=== PATIENT | male | born 1975 | race Caucasian/White ===

== ENCOUNTER → 2024-04-07 10:21 | Outpatient (BNVA) | payer MEDICAID, SELFPAY | DX: Z13.6 Encounter for screening for cardiovascular disorders (principal) | CPT/HCPCS: 80053; 80061; 85025 ==

== ENCOUNTER → 2024-05-14 15:18 | Outpatient (BNVA) | payer MEDICAID, SELFPAY | PROVIDERS: Visit Provider Emergency Medicine | DX: R50.9 Fever, unspecified (principal) | CPT/HCPCS: 87400; 87426 ==

== ENCOUNTER → 2024-08-07 09:57 | Outpatient (BNVA) | payer MEDICAID, SELFPAY | DX: I10 Essential (primary) hypertension (principal); G56.03 Carpal tunnel syndrome, bilateral upper limbs | CPT/HCPCS: 73110 ==

== ENCOUNTER → 2024-09-04 08:28 | Outpatient (BNVA) | payer MEDICAID, SELFPAY | PROVIDERS: Visit Provider Nurse Practitioner | DX: G56.03 Carpal tunnel syndrome, bilateral upper limbs (principal); R20.2 Paresthesia of skin | CPT/HCPCS: 73110 ==

== ENCOUNTER → 2024-09-09 16:49 | Outpatient (BNVA) | payer MEDICAID, SELFPAY | PROVIDERS: Visit Provider Family Medicine | DX: R50.9 Fever, unspecified (principal) | CPT/HCPCS: 87400; 87426 ==

== ENCOUNTER 2024-09-11 15:19 | Emergency (ER) | payer MEDICAID, SELFPAY ==
--- NOTE | 2024-09-11 15:24 | XRR_ITS ---
PROCEDURE INFORMATION: Exam: XR Chest Exam date and time: 09/11/2024 3:39 PM Age: 49 years old Clinical indication: Shortness of breath; Patient HX: SOB, chest pain and coughing up yellow/green thick phlegm x 4-5 days. Very nauseous. PT states that it feels like fire when inhaling TECHNIQUE: Imaging protocol: Radiologic exam of the chest. Views: 1 view. COMPARISON: No relevant prior studies available. FINDINGS: Lungs: Unremarkable. No consolidation. Pleural spaces: Unremarkable. No pleural effusion. No pneumothorax. Heart/Mediastinum: Unremarkable. No cardiomegaly. Bones/joints: Unremarkable. XR/XR chest 1V portable [id number] IMPRESSION: No acute findings.
[2024-09-11 15:28] VITALS: BP 141/87; PULSE 95; RESP 18; TEMP 38.3; O2SAT 95
--- NOTE | 2024-09-11 15:31 | ECG_ITS ---
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 Measurements Intervals Campus Rate: 97 P: 50 MO: 174 QRS: 5 QRSD: 104 T: 86 QT: 330 QTc: 421 Interpretive Statements SINUS RHYTHM INCOMPLETE RIGHT BUNDLE BRANCH BLOCK [90+ ms QRS DURATION, TERMINAL R IN V1/V2, 40+ ms S IN I/aVL/V4/V5/V6] ST DEVIATION AND MODERATE T-WAVE ABNORMALITY, CONSIDER ANTEROLATERAL ISCHEMIA [-0.1+ mV T-WAVE IN V3-V6] No previous ECG available for comparison Electronically Signed On 09-13-2024 00:03:04 FISH FILLETER by Jocelin Dukes M.D. [email or web address]
[2024-09-11 17:09] VITALS: BP 128/82; PULSE 108; TEMP 39.2; O2SAT 93
--- NOTE | 2024-09-11 17:41 | ED_ITS ---
HPI - SOB/Dyspnea 2 General: Chief Complaint: Shortness of Breath/Dyspnea Stated Complaint: sob, overall sick Time Seen by Provider: 09/11/24 17:25 Source: patient Mode of arrival: ambulatory Limitations: no limitations History of Present Illness: HPI Narrative: Patient is a 49-year-old male with past medical history of coronary artery disease who presents the emergency department complaining of shortness of breath for the past few days, since . Patient initially seen in urgent care, was prescribed amoxicillin and states he has been unable to pick this up from pharmacy due to them being out of amoxicillin. Since he has developed increasing weakness, fevers that he has been taking ibuprofen for. He does have a temperature here during triage. He is also having nausea vomiting and diarrhea, a mildly productive cough, headache, chills, and bodyaches. States he recently was sick with norovirus, has had multiple family members sick recently with flu and COVID. He is not reporting any neck pain or stiffness, no reports of altered mental status or confusion, no other concerning symptoms reported at this time. He denies a history of COPD or asthma does not use oxygen at home. MD elicited complaint: shortness of breath Onset (ago): day(s) Timing: progressively worsening Severity: moderate Associated symptoms: Reports abdominal pain, fever(s), nausea and vomiting; Deny chest pain, hemoptysis or palpitations Related Data Home Medications Medication Instructions Recorded Confirmed aspirin 81 mg tablet,delayed 81 mg PO DAILY 04/07/24 09/09/24 release (Debo Low Dose Aspirin) Previous Rx's Medication Instructions Recorded tramadol 50 mg tablet 50 mg PO Q6H PRN pain 5 days #20 05/14/24 tabs gabapentin 300 mg capsule 300 mg PO TID #90 caps 07/18/24 methocarbamol 750 mg tablet 750 mg PO Q8H #30 tabs 07/18/24 atorvastatin 10 mg tablet 10 mg PO DAILY #30 tabs 08/07/24 colchicine 0.6 mg tablet 0.6 mg PO DAILY #30 tabs 08/07/24 metoprolol tartrate 25 mg tablet 25 mg PO BID #60 tabs 08/07/24 celecoxib 100 mg capsule (Celebrex) 100 mg PO BID #180 caps 09/04/24 diclofenac sodium 1 % topical gel 2 g topical QID #100 grams 09/04/24 amoxicillin 500 mg-potassium 1 tab PO TID #30 tabs 09/09/24 clavulanate 125 mg tablet (Augmentin) meloxicam 15 mg tablet 15 mg PO DAILY #10 tabs 09/09/24 promethazine-DM 6.25 mg-15 mg/5 mL 10 ml PO Q6H #118 mL 09/09/24 oral syrup prednisone 20 mg tablet 60 mg (3 x 20 mg) PO ONCE 5 days 09/11/24 #15 tabs Allergies Allergy/AdvReac Type Severity Reaction Status Date / Time No Known Allergies Allergy Verified 09/11/24 15:39 Review of Systems 2 General: Reports: 10 or more systems reviewed and unremarkable except in HPI and below Const: Reports: fever(s), chills, body aches and fatigue ENMT: Denies: throat pain, nasal discharge or nasal congestion Card: Denies: chest pain, palpitations or edema Resp: Reports: dyspnea and productive cough; Denies: hemoptysis GI: Reports: abdominal pain, nausea, vomiting and diarrhea; Denies: hematemesis, constipation or hematochezia : Denies: dysuria or hematuria Musc: Denies: neck pain or joint pain Skin/Breast: Denies: rash Neuro: Reports: headache(s); Denies: confusion or behavioral changes PFSH ED 2 PFSH: Medical History Right wrist pain Carpal tunnel syndrome on both sides Coronary artery disease Hypertension Sciatic nerve pain Herniated disc Screening for cardiovascular condition Encounter to establish care Gout Surgical History H/O rotator cuff surgery Family History Mother Stroke Diabetes mellitus type 1 Heart attack Father Heart attack Social History Smoking and tobacco/nicotine status: never used tobacco/nicotine Alcohol intake: current Substance/Drug Use: never Adopted: No service: No Current occupational exposures/hazards: Yes Physical Exam 2 Const: COMMON NORMALS: no acute distress, patient oriented x3 and no limitations GENERAL APPEARANCE: cooperative, comfortable and well developed ORIENTATION/CONSCIOUSNESS: Yes awake, Yes oriented to person, Yes oriented to place and Yes oriented to time HENMT: COMMON NORMALS: normocephalic, atraumatic, hearing grossly normal bilaterally, Normal nasal mucous membranes and turbinates present, moist oral mucous membranes and oropharynx normal HEAD & SCALP: normocephalic and atraumatic FACE & SINUS: normal facial exam NOSE: Normal nasal mucous membranes and turbinates present Eye: COMMON NORMALS: Equal, round and reactive pupils present, EOMs intact bilaterally and conjunctivae normal CONJUNCTIVA: Yes conjunctivae normal P UPIL: Yes Equal, round and reactive pupils present Neck/C-Spine: COMMON NORMALS: full ROM, supple and no JVD OTHER: No cervical spine tenderness, negative Kernig's and negative Brudzinski Resp: COMMON NORMALS: normal respiratory effort, No retractions, No use of accessory muscles and clear to auscultation bilaterally EFFORT & INSPECTION: Yes Actively coughing hacking AUSCULTATION: clear to auscultation bilaterally Cardio: COMMON NORMALS: no JVD, regular rate, regular rhythm, No clicks present (Cardio), No murmurs present (Cardio) and No rub (Cardio) RATE: r egular rate RHYTHM: regular rhythm GI: COMMON NORMALS: Normal to inspection, nondistended, normoactive bowel sounds present and Soft to palpation AUSCULTATION: Yes normoactive bowel sounds PALPATION: Yes Soft to palpation RECTAL EXAM: Yes deferred O THER: Diffuse abdominal tenderness Extremity: COMMON NORMALS: normal to inspection, full ROM, capillary refill normal and no pedal edema Neuro: COMMON NORMALS: patient oriented x3, moves all extremities, no focal motor deficits and no sensory deficits noted SENSORIUM/ORIENTATION: Yes oriented to person, Yes oriented to place and Yes oriented to time Psych: COMMON NORMALS: mental status grossly normal and Normal thought process present THOUGHT PROCESS: Normal thought process present Skin: COMMON NORMALS: no rashes or lesions noted GENERAL SKIN EXAM: no rashes or lesions noted Course 2 Vital Signs: Vital signs: Vital Signs Temperature 100.1 F H 09/11/24 19:20 Pulse Rate 90 09/11/24 20:58 Respiratory Rate 18 09/11/24 15:28 Blood Pressure 128/88 09/11/24 20:58 Pulse Oximetry 91 09/11/24 20:58 Oxygen Delivery Me thod Room Air 09/11/24 15:28 MDM - SOB/Dyspnea Medical Decision Making Patient presented with 4 days of upper respiratory symptoms. Did arrive with a temperature, brought down Tylenol here. Breathing comfortably on room air, vitals have been stable. Tested positive for flu A. Labs and urinalysis unremarkable, CRP elevated likely secondary to viral infection. Did not have any concerns for meningitis and no signs of pneumonia on chest x-ray. Lactic was unremarkable. I do believe his symptoms are related to fluid infection, he is out of the window for Tamiflu. Discussed with him conservative therapies as he is already prescribed Promethazine DM for his cough, will add steroids for breathing. Encouraged to continue alternating ibuprofen and Tylenol and to follow-up with primary care later this week. For any sick contact exposures, encouraged him to seek evaluation with onset of symptoms as they may qualify for Tamiflu. Return precautions were given such that if he has any trouble breathing, uncontrollable fevers, or other concerning symptoms to return. He agrees with this plan at this time. Lab Data 09/11/24 17:56 09/11/24 17:56 Labs/Radiology: Laboratory Results WBC 8.51 10^3/uL (3.29-11.43) 09/11/24 17:56 RBC 5.66 10^6/uL (3.85-5.65) H 09/11/24 17:56 Hgb 16.20 g/dL (11.27-16.99) 09/11/24 17:56 Hct 46.9 % (37-53) 09/11/24 17:56 MCV 82.9 fl (82-101) 09/11/24 17:56 MCH 28.6 pg (27-33) 09/11/24 17:56 MCHC 34.5 g/dL (30-55) 09/11/24 17:56 RDW 12.4 % (12.1-15.1) 09/11/24 17:56 Plt Count 178 10^3/cmm (157-399) 09/11/24 17:56 MPV 10.9 fL (7.4-10.4) H 09/11/24 17:56 Neut % (Auto) 72.6 % 09/11/24 17:56 Lymph % (Auto) 12.6 % 09/11/24 17:56 [place] % (Auto) 14.0 % 09/11/24 17:56 Eos % (Auto) 0.0 % 09/11/24 17:56 Baso % (Auto) 0.4 % 09/11/24 17:56 Neut # (Auto) 6.19 10^3/uL (1.8-7.7) 09/11/24 17:56 Lymph # (Auto) 1.1 10^3/uL (0.8-4.8) 09/11/24 17:56 [place] # (Auto) 1.2 10^3/uL (0.2-0.9) H 09/11/24 17:56 Eos # (Auto) 0.0 10^3/uL (0.0-0.8) 09/11/24 17:56 Baso # (Auto) 0.0 10^3/uL (0.0-0.1) 09/11/24 17:56 Nucleated RBC % (auto) 0 % 09/11/24 17:56 Nucleated RBCs # 0.0 /100WBC 09/11/24 17:56 Sodium 134 mmol/L (136-145) L 09/11/24 17:56 Potassium 3.6 mmol/L (3.5-5.1) 09/11/24 17:56 Chloride 94 mmol/L (98-107) L 09/11/24 17:56 Carbon Dioxide 26 mmol/L (22-29) 09/11/24 17:56 Anion Gap 17.6 (5-19) 09/11/24 17:56 BUN 14 mg/dL (6-20) 09/11/24 17:56 Creatinine 1.1 mg/dL (0.7-1.2) 09/11/24 17:56 GFR Calculation 71.1 mL/min (90-130) L 09/11/24 17:56 Glucose 113 mg/dL (65-115) 09/11/24 17:56 Calculated Osmolality 279 mOsm/kg (285-295) L 09/11/24 17:56 Lactic Acid 1.8 mmol/L (0.5-2.2) 09/11/24 17:56 Calcium 9.5 mg/dL (8.5-10.5) 09/11/24 17:56 Total Bilirubin 0.7 mg/dL (0.15-1.2) 09/11/24 17:56 AST 30 U/L (0-40) 09/11/24 17:56 ALT 37 U/L (0-41) 09/11/24 17:56 Alkaline Phosphatase 96 U/L (40-130) 09/11/24 17:56 C-Reactive Protein 76.3 mg/L (0.0-4.9) H 09/11/24 17:56 Total Protein 8.0 g/dL (6.6-8.7) 09/11/24 17:56 Albumin 4.3 g/dL (3.5-5.2) 09/11/24 17:56 Globulin 3.7 g/dL (1.3-4.6) 09/11/24 17:56 Urine Color Yellow (Yellow) 09/11/24 18:37 Urine Appearance Cloudy (CLEAR) A 09/11/24 18:37 Urine pH 5.5 (5-7) 09/11/24 18:37 Ur Specific [place] 1.028 (1.005-1.030) 09/11/24 18:37 Urine Protein 2+ (Negative) A 09/11/24 18:37 Urine Glucose (UA) Negative (Normal) 09/11/24 18:37 Urine Ketones Trace (Negative) 09/11/24 18:37 Urine Blood Negative (Negative) 09/11/24 18:37 Urine Nitrate Negative (Negative) 09/11/24 18:37 Urine Bilirubin Negative (Negative) 09/11/24 18:37 Urine Urobilinogen 1.0 mg/dL (Negative) 09/11/24 18:37 Ur Leukocyte Esterase Negative (Negative) 09/11/24 18:37 Urine RBC 0-2 /hpf (0-2) 09/11/24 18:37 Urine WBC 0-5 /hpf (0-5) 09/11/24 18:37 Ur Squamous Epith Cells 0-5 /hpf (0-5) 09/11/24 18:37 Amorphous Sediment Not Reportable 09/11/24 18:37 Urine Bacteria None seen /hpf (NONE) 09/11/24 18:37 Hyaline Casts 9.91 /lpf 09/11/24 18:37 Coronavirus (PCR) Negative (Negative) 09/11/24 17:30 Influenza A (PCR) Positive (Negative) 09/11/24 17:30 Influenza Type A Ag Cancelled 09/11/24 17:30 Influenza Type B Ag Cancelled 09/11/24 17:30 Influenza Type B (PCR) Negative (Negative) 09/11/24 17:30 RSV (PCR) Negative (Negative) 09/11/24 17:30 SARS-CoV-2 Ag (Rapid) Cancelled 09/11/24 17:30 XR interpretation done by ED provider, pending radiology final review ED provider radiology interpretation(s): Chest x-ray did not demonstrate any focal consolidation. Discharge Plan Discharge Patient Disposition: Home Clinical Impression: Influenza A Condition: Stable Prescriptions: New prednisone 20 mg tablet 60 mg PO ONCE 5 Days Qty: 15 0RF No Action aspirin [Debo Low Dose Aspirin] 81 mg tablet,delayed release (DR/EC) 81 mg PO DAILY tramadol 50 mg tablet 50 mg PO Q6H PRN (Reason: pain) 5 Days Qty: 20 0RF atorvastatin 10 mg tablet 10 mg PO DAILY Qty: 30 2RF colchicine 0.6 mg tablet 0.6 mg PO DAILY Qty: 30 2RF metoprolol tartrate 25 mg tablet 25 mg PO BID Qty: 60 2RF celecoxib [Celebrex] 100 mg capsule 100 mg PO BID Qty: 180 1RF diclofenac sodium 1 % gel 2 g topical QID Qty: 100 1RF Rx Instructions: apply to single elbow, wrist or hand; for hand includes palm/fingers/back of hand promethazine-DM 6.25-15 mg/5 mL syrup 10 ml PO Q6H Qty: 118 1RF amoxicillin-pot clavulanate [Augmentin] 500-125 mg tablet 1 tab PO TID Qty: 30 0RF meloxicam 15 mg tablet 15 mg PO DAILY Qty: 10 0RF gabapentin 300 mg capsule 300 mg PO TID Qty: 90 2RF methocarbamol 750 mg tablet 750 mg PO Q8H Qty: 30 1RF Discharge Orders: Discharge ED (Routine); Ordered 09/11/24 Ordered By: Meek Reese Referrals: Enriqueta Baldwin NP [Primary Care Provider] - Patient Instructions: Influenza (ED) Activity Restrictions/Additional Instructions: Prednisone as prescribed. Continue cough medicine at home. Please follow-up with primary care for routine reevaluation. Drink plenty of fluids. Tylenol/ibuprofen for body aches and fevers. Return with any worsening breathing or other concerning symptoms. Coding Level of Care Code ED Capsule Inspector for Soyg Myke
[2024-09-11] MEDS: ondansetron 2 mg/ML SDV 2 mL 8 MG IVP (17:59)
[2024-09-11] MEDS: sodium chloride 0.9% 1,000 ML 999 ML IV (17:59)
[2024-09-11] MEDS: acetaminophen 500 mg Tablet 1000 MG PO (18:00)
[2024-09-11 18:31] LABS: Covid PCR NEGATIVE (Negative); Influenza A POSITIVE (Negative); Influenza B NEGATIVE (Negative); Respiratory Syncytial Virus Ce NEGATIVE (Negative)
[2024-09-11] MEDS: benzonatate 100 mg Capsule 200 MG PO (18:34)
[2024-09-11 18:45] LABS: Bilirubin Urine Negative (Negative); Blood Urine Negative (Negative); Glucose Urine UA Negative (Normal); Ketones Urine Trace (Negative); Leukocyte Esterase Urine Negative (Negative); Nitrate Urine Negative (Negative); Protein Urine 2+ (Negative); Specific Gravity, Urine 1.028 (1.005-1.030); Urine Appearance Cloudy (CLEAR); Urine Color Yellow (Yellow); pH Urine 5.5 (5-7)
[2024-09-11 18:51] LABS: Basophils % 0.4 %; Hematocrit 46.9 % (37-53); Lymphocytes # 1.1 10^3/uL (0.8-4.8); Lymphocytes % 12.6 %; Mean Corpuscular HGB Conc 34.5 g/dL (30-55); Mean Corpuscular Hemoglobin 28.6 pg (27-33); Mean Corpuscular Volume 82.9 fl (82-101); Mean Platelet Volume 10.9 fL (7.4-10.4); Monocytes # 1.2 10^3/uL (0.2-0.9); Neutrophils # 6.19 10^3/uL (1.8-7.7); Neutrophils % 72.6 %; Nucleated Red Blood Cells % 0 %; Platelet Count 178 10^3/cmm (157-399); Red Blood Count 5.66 10^6/uL (3.85-5.65); Red Cell Distribution Width 12.4 % (12.1-15.1); White Blood Count 8.51 10^3/uL (3.29-11.43)
[2024-09-11 18:53] LABS: Add Urine Microscopic? YES; Bacteria Urine None Seen /hpf; Hyaline Casts Urine 9.91 /lpf; RBC Urine 0-2 /hpf (0-2); Squamous Epithelial Cell Urine 0-5 /hpf (0-5); WBC Urine 0-5 /hpf (0-5)
[2024-09-11 19:10] LABS: Alanine Aminotransferase 37 U/L (0-41); Albumin Level 4.3 g/dL (3.5-5.2); Alkaline Phosphatase 96 U/L (40-130); Anion Gap 17.6 (5-19); Aspartate Amino Transferase 30 U/L (0-40); Blood Urea Nitrogen 14 mg/dL (6-20); C Reactive Protein 76.3 mg/L (0.0-4.9); Calcium 9.5 mg/dL (8.5-10.5); Carbon Dioxide 26 mmol/L (22-29); Chloride 94 mmol/L (98-107); Creatinine Clr Calc Pharmacy 95.7279; Globulin 3.7 g/dL (1.3-4.6); Glomerular Filtration Rate 71.1 mL/min (90-130); Glucose 113 mg/dL (65-115); Osmolality Calculated 279 mOsm/kg (285-295); Potassium 3.6 mmol/L (3.5-5.1); Sodium 134 mmol/L (136-145); Total Bilirubin 0.7 mg/dL (0.15-1.2)
[2024-09-11 19:11] LABS: Lactic Sepsis W/Reflex 1.8 mmol/L (0.5-2.2)
[2024-09-11 19:20] VITALS: TEMP 37.8
[2024-09-11] MEDS: ketorolac 30 mg/mL INJ IVP (20:17)
[2024-09-11 20:58] VITALS: BP 128/88; PULSE 90; O2SAT 91
== END 2024-09-11 20:59 | disposition home or self-care (01) ==
PROVIDERS: Emergency Medicine; Emergency Provider Physician Assistant
DX: J10.1 Influenza due to other identified influenza virus with other respiratory manifestations (principal); Z79.82 Long term (current) use of aspirin; I25.10 Atherosclerotic heart disease of native coronary artery without angina pectoris; I10 Essential (primary) hypertension
CPT/HCPCS: 71045; 80053; 81001; 83605; 85025; 86140; 87637; 93005; 96361; 96374; 96375; 99285; J1885; J2405; J7030

== ENCOUNTER → 2024-09-25 11:38 | Outpatient (BNVA) | payer MEDICAID, SELFPAY | PROVIDERS: Visit Provider Nurse Practitioner | DX: G56.03 Carpal tunnel syndrome, bilateral upper limbs (principal) | CPT/HCPCS: 36415; 80053; 83036; 85025 ==

== ENCOUNTER → 2024-10-13 18:27 | Outpatient (BNVA) | payer MEDICAID, SELFPAY | PROVIDERS: Visit Provider Nurse Practitioner Family | DX: R05.9 Cough, unspecified (principal); R93.7 Abnormal findings on diagnostic imaging of other parts of musculoskeletal system | CPT/HCPCS: 71046 ==

== ENCOUNTER → 2024-12-18 17:02 | Outpatient (BNVA) | payer MEDICAID, SELFPAY | PROVIDERS: Visit Provider Nurse Practitioner | DX: G56.03 Carpal tunnel syndrome, bilateral upper limbs (principal) | CPT/HCPCS: 36415; 80053; 81001; 85025 ==

== ENCOUNTER → 2024-12-22 08:46 | Outpatient (BNVA) | payer MEDICAID, SELFPAY | PROVIDERS: Visit Provider Family Medicine | DX: Z01.818 Encounter for other preprocedural examination (principal); R00.1 Bradycardia, unspecified; I45.10 Unspecified right bundle-branch block | CPT/HCPCS: 93005 ==

== ENCOUNTER 2024-12-28 07:56 | Day surgery (SDC) | payer MEDICAID, SELFPAY ==
[2024-12-28] VITALS (11 sets, daily range): BP systolic 112–135; BP diastolic 64–97; PULSE 66–87; RESP 14–19; TEMP 36.1–36.5; O2SAT 93–98; BMI 35.6
[2024-12-28] MEDS: sodium chloride 0.9% 1,000 ML 30 ML IV (08:39)
[2024-12-28] MEDS: acetaminophen 1,000 MG/100 ML PIGGYBACK 400 MG IV (08:39)
[2024-12-28] MEDS: CELEcoxib 200 mg Capsule 400 MG PO (08:40)
[2024-12-28] MEDS: gabapentin 300 mg Capsule PO (08:40)
--- NOTE | 2024-12-28 09:58 | P.HPUD_ITS ---
Surgery/Procedure H&P Update DATE OF PROCEDURE: December 28, 2024 DATE H&P PERFORMED: 12/22/24 H&P UPDATE INFORMATION: I have reviewed H&P completed within last 30 days, I have examined patient prior to procedure, No changes to prior documentation, H&P is in [facility] EMR on date indicated and Risks and benefits of the procedure reviewed PLANNED PROCEDURE: Operation Date: 12/28/24 09:40 Proposed Procedures p RIGHT Carpal Tunnel Release(Right) - Daisy Grover MD Related Problem List Diagnoses (1) Carpal tunnel syndrome on right:
--- NOTE | 2024-12-28 10:01 | ANES.PREANE2 ---
Pre-Anesthetic Assessment Height/Weight: Height 1.73 m Weight 106.141 kg Temp Pulse Resp BP Pulse Ox O2 Del Method 97.6 F 66 18 127/83 98 Room Air 12/28/24 08:17 12/28/24 08:17 12/28/24 08:17 12/28/24 08:17 12/28/24 08:17 12/28/24 08:26 Operation Date: 12/28/24 09:40 Proposed Procedures p RIGHT Carpal Tunnel Release(Right) - Daisy Grover MD Familial anesthetic complications: None Was Beta Alvin taken within 24 hours: N/A Was Clonidine taken within 24 hours: N/A Last intake: Intake Last Liquid Date 11/28/24 Last Liquid Time 23:00 Last Solid Date 12/27/24 Last Solid Time 21:00 Social No alcohol and No tobacco Exam alert, oriented x 3, clear to auscultation bilaterally and regular rate & rhythm Airway Mallampati: Class II Dentition: full Pulmonary Sleep Apnea CV/HEM Coronary Artery Disease and Hypertension Denies: OLIVEIRA, CP, or syncope Metabolic Morbid Obesity Anesthetic Plan ASA status: 3 Anesthesia: General Risk of > 500 ml blood loss (7ml/kg in children): No Medications/Allergies Home Medications ?Medication ?Instructions ?Recorded ?Confirmed ?Last Taken ?Type aspirin 81 mg tablet,delayed 81 mg PO DAILY 04/07/24 12/27/24 12/18/24 History release (Debo Low Dose Aspirin) tramadol 50 mg tablet 50 mg PO Q6H PRN pain 5 days #20 05/14/24 12/27/24 12/18/24 Rx tabs methocarbamol 750 mg tablet 750 mg PO Q8H #30 tabs 07/18/24 12/27/24 12/18/24 Rx atorvastatin 10 mg tablet 10 mg PO DAILY #30 tabs 08/07/24 12/27/24 12/18/24 Rx colchicine 0.6 mg tablet 0.6 mg PO DAILY #30 tabs 08/07/24 12/27/24 12/18/24 Rx metoprolol tartrate 25 mg tablet 25 mg PO BID #60 tabs 08/07/24 12/27/24 12/28/24 Rx albuterol sulfate 90 mcg/actuation 2 puff inhalation Q6H PRN 09/19/24 12/27/24 Unknown Rx aerosol inhaler (Ventolin HFA) shortness of breath or wheezing #8.5 grams fluticasone propionate 44 2 puff inhalation BID #10.6 grams 10/14/24 12/27/24 12/18/24 Rx mcg/actuation HFA aerosol inhaler diclofenac sodium 1 % topical gel 2 g topical QID #100 grams 12/13/24 12/27/24 12/18/24 Rx (Voltaren Arthritis Pain) ibuprofen 800 mg tablet (IBU) 800 mg PO TID PRN pain #30 tabs 12/13/24 12/27/24 12/18/24 Rx chlorzoxazone 500 mg tablet 250 mg (1/2 x 500 mg) PO TID #21 12/18/24 12/27/24 12/18/24 Rx tabs tennis elbow strap #1 ea 12/18/24 12/22/24 Unknown Rx Allergies Allergy/AdvReac Type Severity Reaction Status Date / Time No Known Allergies Allergy Verified 12/22/24 09:10 Current Medications Generic Name Dose Route Start Last Admin Trade Name Freq PRN Reason Stop Dose Admin Sodium Chloride 1,000 mls @ 30 mls/hr 12/28/24 08:15 12/28/24 08:39 Sodium Chloride 0.9% IV 12/29/24 08:14 30 mls/hr .Q24H RIVER Administration PFSH Anesthesia Medical History (Updated 12/28/24 @ 09:59 by Daisy Grover MD) Lateral epicondylitis of right elbow Right wrist pain Carpal tunnel syndrome on both sides Coronary artery disease Hypertension Sciatic nerve pain Herniated disc Screening for cardiovascular condition Encounter to establish care Gout Surgical History H/O rotator cuff surgery Family History Mother Stroke Diabetes mellitus type 1 Heart attack Father Heart attack Social History Smoking and tobacco/nicotine status: never used tobacco/nicotine Alcohol intake: current Substance/Drug Use: never Adopted: No service: No Current occupational exposures/hazards: Yes
[2024-12-28] MEDS: ceFAZolin 2,000 mg SDV 2000 MG IVP (10:24)
[2024-12-28] MEDS: BUPivacaine 0.5% INJ 30 mL XX (11:09)
--- NOTE | 2024-12-28 11:34 | P.OP_ITS ---
Operative Report Date of procedure: December 28, 2024 Pre-op diagnosis: Right carpal tunnel syndrome Post-op diagnosis: Right carpal tunnel syndrome Post-op findings: Purpleish discoloration of the median nerve through the carpal canal Procedure done: Right carpal tunnel release Implants: None Specimens removed/disposition: None Pathology: None Surgeon: Daisy Grover MD Sales Administrator: None Anesthesia: General (Per LMA, ASA 3) Estimated blood loss (mL): 2 Tourniquet time (min): 25 (At 250 mmHg) IV fluids (mL): 700 Urine output (mL): 0 (No Carlos) Complications: None Findings: Significant compression across the carpal canal with hourglass shaped to the median nerve and purpleish discoloration Condition: stable Disposition: PACU (Then return to same-day surgery for discharge to home) Brief History: This 49-year-old gentleman presents today for same-day surgery in the form of right carpal tunnel release. Additionally, he has developed some lateral epicondylitis, but he understands that today, we are addressing his carpal tunnel symptoms and findings on nerve conduction study. After discussion in the office, the patient wished to proceed with carpal tunnel release. Risks and complications were discussed with him. Questions were answered and consents were signed. On the morning of surgery, the patient was seen and given further opportunity for questions. Procedure: The patient was brought to the operating theater. The patient had a general anesthesia per LMA, ASA 3. The tourniquet was elevated to 250 mmHg for a total tourniquet time of 25 minutes. The patient was also given Ancef 2 g preoperatively. The arm was then prepped and draped with DuraPrep in usual fashion with the arm draped free. A surgical pause was performed. At the time, the surgical pause, we confirmed the site and side of surgery. We also confirmed the patient's identity, appropriate and timely administration of preoperative antibiotics and preoperative surgical markings. An incision was then made along the thenar crease. The incision crossed the wrist joint in a curvilinear fashion. Dissection continued through skin and soft tissues using a scalpel. The palmaris longus was identified along with the transverse carpal ligament. Each of these was released carefully to avoid injury to the median nerve. We were able to dissect gently into the carpal canal which was noted to be quite tight with significant compression across the median nerve. The nerve was visualized and was an hourglass shape. The canal was subsequently palpated to assure there was no bony encroachment upon the canal. There was a quite thickened fibrous tissue within the canal, and this was opened longitudinally as well. The canal was then palpated distally and proximally to assure that my small finger was passed easily without impingement. Finding this to be so, attention was directed to closure. The wound was irrigated with ropivacaine plain. It was then closed with 3-0 nylon in an interrupted mattress fashion. Sterile dressing was then placed consisting of Dermabond, OpSite, fluffed fluffs, sterile soft roll, and an Tobias wrap. The tourniquet was released after 25 minutes. There were no complications. There were no specimens. The procedure was well tolerated. Plan is the patient will be discharged home. Related Problem List Diagnoses (1) Carpal tunnel syndrome on right:
[2024-12-28] MEDS: HYDROcodone-acetaminophen 5-325 mg Tablet 1 TAB PO (12:10)
--- NOTE | 2024-12-28 13:00 | ANE.PACU2 ---
Inpatient post-anesthesia follow up: Airway intact: Yes Vital signs: Temperature 97.7 F Pulse Rate 71 Respiratory Rate 16 Blood Pressure 112/83 Pulse Oximetry 97 Oxygen Delivery Me thod Room Air Oxygen Flow Rate 8 Fraction of Inspir ed Oxygen Hydration adequate: Yes Nausea and vomiting: No Pain level: 1 Mental status: Baseline
== END 2024-12-28 13:00 | disposition home or self-care (01) ==
PROVIDERS: Visit Provider Specialist
PROC: (CPT 64721; principal; 2024-12-28 09:40)
DX: G56.03 Carpal tunnel syndrome, bilateral upper limbs (principal); I25.10 Atherosclerotic heart disease of native coronary artery without angina pectoris; E66.01 Morbid (severe) obesity due to excess calories; I10 Essential (primary) hypertension; Z79.899 Other long term (current) drug therapy; Z79.82 Long term (current) use of aspirin; Z68.35 Body mass index [BMI] 35.0-35.9, adult
CPT/HCPCS: 64721; J0131; J0690; J2250; J2704; J3010; J3301; J3490; J7030; J9999

== ENCOUNTER 2025-02-12 15:53 | Outpatient (CLI) | payer BC, MEDICAID, SELFPAY ==
--- NOTE | 2025-02-12 16:00 | MR_ITS ---
WS: [id number] MRI RIGHT ELBOW WITHOUT CONTRAST. COMPARISON: None Multiplanar, multisequence imaging is performed without contrast. History: Burning pain after carpal tunnel surgery. Abnormal signal over the lateral elbow within the common extensor tendon. There is thickening and increased T2 signal within the common extensor tendon at the origin from the lateral humeral epicondyle. High-grade tear extending over a length of 8 mm. There is at least slight retraction of the tendon. Normal marrow edema in the bones of the elbow. No dislocation. Normal alignment of the radius, ulna and humerus. No significant joint effusion. No osteochondral lesions or loose bodies. Visualized portions of the ulnar and median nerves appear appropriate. MR/MR elbow RT wo con* [id number] IMPRESSION: 1. Acute, high-grade tear involving the origin of the common extensor tendon f rom the lateral humeral epicondyle. 2. There is additional tendinopathy and interstitial fluid within the common e xtensor tendon. 3. No fractures or marrow edema.
== END 2025-02-12 15:54 | disposition home or self-care (01) ==
PROVIDERS: Visit Provider Nurse Practitioner
DX: S56.511A Strain of other extensor muscle, fascia and tendon at forearm level, right arm, initial encounter (principal); M77.11 Lateral epicondylitis, right elbow; X58.XXXA Exposure to other specified factors, initial encounter
CPT/HCPCS: 73221

== ENCOUNTER 2025-02-27 05:00 | Outpatient (CLI) | payer BC, SELFPAY | END 2025-02-27 05:01 | disposition home or self-care (01) | LOC: SPT 03-23 16:31 | PROVIDERS: Visit Provider Nurse Practitioner | DX: Z46.89 Encounter for fitting and adjustment of other specified devices (principal); M77.11 Lateral epicondylitis, right elbow | CPT/HCPCS: L3761 ==

== ENCOUNTER 2025-02-27 05:00 | Outpatient (RCR) | payer BC, SELFPAY | END 2025-03-29 23:59 | disposition home or self-care (01) | LOC: SOT 05:00 | PROVIDERS: Visit Provider Nurse Practitioner | DX: Z98.890 Other specified postprocedural states (principal) | CPT/HCPCS: 97035; 97110; 97140; 97166; 97530 ==

== ENCOUNTER → 2025-04-16 14:30 | Outpatient (BNVA) | payer OTHER, SELFPAY | DX: R07.9 Chest pain, unspecified (principal); I10 Essential (primary) hypertension; R73.03 Prediabetes | CPT/HCPCS: 80053; 80061; 83880; 85025; 85379 ==

== ENCOUNTER → 2025-06-04 09:36 | Outpatient (BNVA) | payer MEDICAID, SELFPAY | PROVIDERS: Visit Provider Nurse Practitioner | DX: M77.11 Lateral epicondylitis, right elbow (principal); S56.511D Strain of other extensor muscle, fascia and tendon at forearm level, right arm, subsequent encounter; M65.311 Trigger thumb, right thumb; X58.XXXD Exposure to other specified factors, subsequent encounter | CPT/HCPCS: 73090 ==

== ENCOUNTER 2025-06-18 11:41 | Outpatient (CLI) | payer MEDICAID, SELFPAY ==
[2025-06-18 12:00] VITALS: BMI 36.5
--- NOTE | 2025-06-18 12:01 | ECG_ITS ---
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 Interpretive Statements Procedure: The patient was exercised by the Richard protocol. Findings:The patient exercised for a total of 5 minutes and 58 seconds reaching 164 bpm for maximal heart rate which was 96% of maximum predicted heart rate. Patient achieved 7 METS. The baseline blood pressure was 129/89 with a heart rate of 88 bpm. During recovery the patient's blood pressure was 127/77 with a heart rate of 102 bpm. Resting EKG showed normal sinus rhythm with incomplete right bundle branch block and occasional PVCs. There was [address] depression in the inferior and anterolateral leads consistent with ischemia. There were more frequent PVCs in recovery. ST depressions improved during recovery. CONCLUSION: 1. Exercise capacity was average for age. 2. Heart rate response was appropriate. 3. Blood pressure response was appropriate. 4. No symptoms of angina during exercise. 5. Electrocardiogram portion of the stress test with evidence of ischemia And frequent PVCs. 6. Nuclear scan will be documented separately. Electronically Signed On 06-18-2025 23:08:58 CDT by Art Carlisle M.D. [email or web address]
[2025-06-18 12:37] VITALS: BP 127/77; PULSE 102
== END 2025-06-18 11:42 | disposition home or self-care (01) ==
LOC: CDL 11:41
PROVIDERS: Visit Provider Pediatrics
DX: R07.9 Chest pain, unspecified (principal)
CPT/HCPCS: 93017

== ENCOUNTER 2025-07-02 09:56 | Outpatient (CLI) | payer MEDICAID, SELFPAY ==
[2025-07-02 10:59] LABS: Hematocrit 46.3 % (37-53); Hemoglobin 16.10 g/dL (11.27-16.99); Mean Corpuscular HGB Conc 34.8 g/dL (30-55); Mean Corpuscular Hemoglobin 28.5 pg (27-33); Mean Corpuscular Volume 82.1 fl (82-101); Nucleated Red Blood Cells % 0 %; Platelet Count 237 10^3/cmm (157-399); Red Blood Count 5.64 10^6/uL (3.85-5.65); White Blood Count 6.55 10^3/uL (3.29-11.43)
[2025-07-02 11:19] LABS: INR 0.89 (0.83-1.21)
[2025-07-02 11:24] LABS: Anion Gap 16.2 (5-19); Blood Urea Nitrogen 15 mg/dL (6-20); Calcium 9.3 mg/dL (8.5-10.5); Carbon Dioxide 24 mmol/L (22-29); Chloride 103 mmol/L (98-107); Glucose 91 mg/dL (65-115); Osmolality Calculated 288 mOsm/kg (285-295); Potassium 4.2 mmol/L (3.5-5.1); Sodium 139 mmol/L (136-145)
== END 2025-07-02 09:57 | disposition home or self-care (01) ==
LOC: LAB 09:58
PROVIDERS: Visit Provider Internal Medicine Cardiovascular Disease
DX: R07.9 Chest pain, unspecified (principal); I25.10 Atherosclerotic heart disease of native coronary artery without angina pectoris; I10 Essential (primary) hypertension; R58 Hemorrhage, not elsewhere classified
CPT/HCPCS: 36415; 80048; 85025; 85610

== ENCOUNTER → 2025-07-03 16:11 | Outpatient (BNVA) | payer MEDICAID, SELFPAY | DX: R73.03 Prediabetes (principal) | CPT/HCPCS: 80061; 83036; 84443 ==

== ENCOUNTER 2025-07-30 08:14 | Outpatient (CLI) | payer MEDICAID, SELFPAY ==
--- NOTE | 2025-07-30 08:18 | USCV_ITS ---
Panda Irwin Age: 50 Gender: M : 1975 Exam Date: 07/30/2025 08:34 Ordering Phys: Art Carlisle MD ([email or web address]) Technologist: Exam Location: [facility] – [place] Indication: cp sob BP: 120 / 70 HR: 89 Rhythm: Sinus Technical Quality: Adequate MEASUREMENTS (Male / Female) Normal Values 2D ECHO LV Diastolic Diameter PLAX 4.2 cm 4.2 - 5.9 / 3.9 - 5.3 cm IVS Diastolic Thickness 1.1 cm 0.6 - 1.0 / 0.6 - 0.9 cm IVS Systolic Thickness 1.4 cm LVPW Systolic Thickness 1.9 cm LVOT Diameter 2.0 cm LV Ejection Fraction 2D Teich 64.2 % LV Ejection Fraction MOD 4C 65.9 % LV Ejection Fraction MOD 2C 67.0 % LV Ejection Fraction 2C AL 67.3 % LA Diameter 3.5 cm RA Systolic Volume 4C AL 28.8 ml RA Systolic Volume 4C MOD 27.8 ml Aorta at Sinotubular Diameter 3.1 cm IVC Diameter 1.3 cm M-MODE LA Ao Ratio MM 1.0 AV Cusp Separation MM 2.5 cm DOPPLER AV Peak Velocity 119.0 cm/s MV Peak Velocity 91.0 cm/s MV Area PHT 4.4 cm squared TV Peak Velocity 217.5 cm/s TR Peak Velocity 220.0 cm/s TR Peak Gradient 19.4 mmHg TV Peak E Velocity 99.0 cm/s PV Peak Velocity 164.0 cm/s FINDINGS Left Ventricle Normal left ventricular size, systolic function and ejection fraction of 64%. Normal left ventricular diastolic function. Mild concentric left ventricular hypertrophy. Normal normal left ventricular wall thickness. Right Ventricle Normal right ventricular size and systolic function. RVSP could not be calculated due to incomplete tricuspid regurgitation velocity profile. Right Atrium Normal right atrial size. Left Atrium Normal left atrial size. IA Septum Normal appearance of the interatrial septum. Mitral Valve Normal mitral valve structure. No mitral valve stenosis or regurgitation. Aortic Valve Normal aortic valve structure. No aortic valve stenosis or regurgitation. Tricuspid Valve Normal tricuspid valve structure. No tricuspid valve stenosis or regurgitation. Pulmonic Valve Normal pulmonic valve structure. No pulmonic valve stenosis or regurgitation. Pericardium No pericardial effusion. Aorta Normal diameter of the aortic root and ascending thoracic aorta. IVC Normal IVC diameter. CONCLUSIONS Normal left ventricular size, systolic function and wall thickness with ejection fraction of 64%. Normal right ventricular size and systolic function. No significant valvular abnormalities. Art Carlisle MD, FACC (Electronically Signed) Final Date: 08 August 2025 21:33 S
== END 2025-07-30 08:15 | disposition home or self-care (01) ==
LOC: RAD 08:15
PROVIDERS: Visit Provider Internal Medicine Cardiovascular Disease
DX: I49.3 Ventricular premature depolarization (principal); I51.7 Cardiomegaly
CPT/HCPCS: 93306